=== PATIENT | male | born 1925 | race Caucasian/White ===

== ENCOUNTER 2016-03-25 07:01 | Emergency (ER) | payer MEDICARE, OTHER ==
[2016-03-25] MEDS ORDERED: CLOPIDOGREL PO (08:41)
[2016-03-25] MEDS ORDERED: ASCORBIC ACID500 M3 PO (08:41)
[2016-03-25] MEDS ORDERED: HCTZ 25MG25 MG PO (08:42)
[2016-03-25] MEDS ORDERED: PROSCAR PO (08:42)
[2016-03-25] MEDS ORDERED: KEPPRA 500MG500 MG PO (08:43)
[2016-03-25] MEDS ORDERED: LANTUS SOLOS100 U/ML SC (08:43)
[2016-03-25] MEDS ORDERED: NOVOLOG FLEX100 U/ML SC (08:43)
[2016-03-25] MEDS ORDERED: SEROQUEL 2525 MG/TAB PO (08:43)
[2016-03-25] MEDS ORDERED: CRESTOR20 MG PO (08:44)
[2016-03-25] MEDS ORDERED: ACCUPRIL 40MG T40 MG PO (08:44)
[2016-03-25 09:54] VITALS: BP 143/76
== END 2016-03-25 10:11 | disposition home or self-care (01) ==
LOC: ED 07:01
DX: R04.0 Epistaxis (principal); E11.9 Type 2 diabetes mellitus without complications; Z79.4 Long term (current) use of insulin; Z79.01 Long term (current) use of anticoagulants